=== PATIENT | female | born 1975 | race Caucasian/White ===

== ENCOUNTER → 2021-05-27 | Outpatient (CLI) | payer OTHER | LOC: MHCPAIN 09:01 | DX: M79.18 Myalgia, other site (principal); M54.81 Occipital neuralgia; M54.2 Cervicalgia; G89.29 Other chronic pain | CPT/HCPCS: G0463; J1040 ==

== ENCOUNTER → 2021-06-10 | Outpatient (CLI) | payer OTHER | LOC: MHCPAIN 08:19 | DX: M79.18 Myalgia, other site (principal); M54.81 Occipital neuralgia; M54.2 Cervicalgia | CPT/HCPCS: G0463 ==

== ENCOUNTER → 2021-09-10 | Outpatient (CLI) | payer OTHER | LOC: MHCPAIN 07:40 | DX: M54.81 Occipital neuralgia (principal); M54.2 Cervicalgia; M79.81 Nontraumatic hematoma of soft tissue; R51.9 Headache, unspecified | CPT/HCPCS: G0463; J1040 ==

== ENCOUNTER → 2021-12-31 | Outpatient (CLI) | payer OTHER | LOC: MHCPAIN 10:20 | DX: M79.18 Myalgia, other site (principal); M54.81 Occipital neuralgia; M54.2 Cervicalgia; R51.9 Headache, unspecified | CPT/HCPCS: G0463 ==

== ENCOUNTER → 2023-11-11 | Outpatient (CLI) | payer OTHER | LOC: MC.RAD 10:15 | DX: Z12.31 Encounter for screening mammogram for malignant neoplasm of breast (principal); N63.20 Unspecified lump in the left breast, unspecified quadrant ==